=== PATIENT | female | born 1995 | race American Indian/Alaskan Native ===

== ENCOUNTER 2019-02-18 02:01 | Emergency (ER) | payer MEDICAID, OTHER ==
[2019-02-18 02:28] LABS: Basophils % (Auto) 0.2 % (0.0-1.8); Eosinophils # (Auto) 0.1 K/mm3 (0.0-0.4); Eosinophils % (Auto) 0.8 % (0.0-4.3); Hematocrit 29.9 % (30.3-42.9); Hemoglobin 9.9 gm/dl (10.1-14.3); Lymphocytes # (Auto) 2.8 K/mm3 (1.2-5.4); Lymphocytes % (Auto) 27.8 % (13.4-35.0); Mean Corpuscular HGB Conc 33 % (30-34); Mean Corpuscular Volume 85 fl (79-97); Monocytes # (Auto) 0.6 K/mm3 (0.0-0.8); Monocytes % (Auto) 5.9 % (0.0-7.3); Platelet Count 437 K/mm3 (140-440); Red Blood Count 3.51 M/mm3 (3.65-5.03); Red Cell Distribution Width 12.8 % (13.2-15.2)
[2019-02-18 03:02] LABS: Alanine Aminotransferase 26 units/L (7-56); Albumin 4.1 g/dL (3.9-5); BUN/Creatinine Ratio 10; Blood Urea Nitrogen 10 mg/dL (7-17); Calcium 9.3 mg/dL (8.4-10.2); Hemolysis Index 8
[2019-02-18] MEDS ORDERED: PERCOCET 5/325 PO ONE (03:43)
[2019-02-18] MEDS ORDERED: ZOFRAN ODT PO ONE (03:44)
[2019-02-18 03:46] LABS: Bilirubin,Urine NEG (Negative); Blood,Urine LG (Negative); Color,Urine Yellow (Yellow); Mucus,Urine 3+ /HPF; Protein,Urine <15 mg/dL mg/dL (Negative); RBC,Urine > 182.0 /HPF (0.0-6.0)
[2019-02-18] MEDS ORDERED: ZITHROMAX PO ONE (04:14)
[2019-02-18] MEDS ORDERED: XYLOCAINE 1% MPF 5 mL INFILTRATI ONE (04:14)
[2019-02-18] MEDS ORDERED: ROCEPHIN IM ONE (04:14)
--- NOTE | 2019-02-18 05:30 | Emergency Department Report ---
ED Female HPI - General Chief complaint: Abdominal Pain Stated complaint: PELVIC PAIN Time Seen by Provider: 02/18/19 04:20 Source: patient Mode of arrival: Ambulatory Limitations: No Limitations - History of Present Illness Initial comments: Patient is a nulliparous 23-year-old female with no past medical history who presents to the ED with acute onset of persistent severe dysmenorrhea for the last 6 hours. Patient states that she recently received a Depo Provera injection. Patient states that soon after she received the Depo-Provera she started bleeding but only a few days. Patient stated that the last 2 days she started having her menstrual cycle and the pain was mild but in the last 6 hours the pain got worse. Patient stated that she's been unable to sleep. Patient also complains of vaginal discharge with malodorous smell. Patient denies being sexually active. 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 Patient denies dizziness, fever, chills, diarrhea, low back pain, nausea and vomiting or chest pain or shortness of breath. MD Complaint: vaginal bleeding, vaginal discharge, pelvic pain -: Sudden, days(s) (2) Location: suprapubic Radiation: non-radiating, suprapubic Severity: severe Severity scale (0 -10): 9 Quality: cramping, sharp Consistency: constant Improves with: none Worsens with: none Are you Now?: No Last Menstrual Period: 02/15/19 EDC: 11/22/19 Associated Symptoms: vaginal discharge, vaginal bleeding, abdominal pain. denies: nausea/vomiting, fever/chills, headaches, loss of appetite, dysuria, hematuria, shortness of breath, syncope, weakness - Related Data Sexually active: No : 0 Para: 0 A: 0 Previous Rx's Medication Instructions Recorded Last Taken Type Acetaminophen/Codeine [Tylenol 1 tab PO Q6H PRN #15 tab 02/18/19 Unknown Rx /Codeine # 3 tab] Doxycycline Hyclate [Doxycycline 100 mg PO Q12HR #20 tab 02/18/19 Unknown Rx Hyclate TAB] Ibuprofen [Motrin] 800 mg PO Q8HR PRN #20 tablet 02/18/19 Unknown Rx Ondansetron [Zofran Odt] 4 mg PO Q8HR #15 tab.rapdis 02/18/19 Unknown Rx metroNIDAZOLE [Flagyl] 500 mg PO Q12HR #20 tab 02/18/19 Unknown Rx Allergies Allergy/AdvReac Type Severity Reaction Status Date / Time No Known Allergies Allergy Unverified 02/18/19 02:13 ED Review of Systems ROS: Stated complaint: PELVIC PAIN Other details as noted in HPI Comment: All other systems reviewed and negative Constitutional: no symptoms reported, see HPI. denies: chills, diaphoresis, fever Eyes: as per HPI. denies: eye pain, vision change ENT: as per HPI. denies: ear pain, throat pain, dental pain, hearing loss, epistaxis Respiratory: no symptoms reported, see HPI. denies: cough, orthopnea, shortness of breath, SOB with exertion Cardiovascular: as per HPI. denies: chest pain, palpitations, syncope Endocrine: no symptoms reported, see HPI. denies: excessive sweating, flushing Gastrointestinal: as per HPI, abdominal pain. denies: nausea, vomiting, constipation, hematochezia Genitourinary: as per HPI, hematuria, discharge, abnormal menses. denies: urg ency, dysuria Musculoskeletal: as per HPI. denies: back pain, joint swelling, arthralgia Skin: as per HPI. denies: rash, lesions, change in hair/nails Neurological: as per HPI. denies: headache, numbness, paresthesias Psychiatric: as per HPI Hematological/Lymphatic: as per HPI ED Past Medical Hx - Past Medical History Previous Medical History?: Yes Additional medical history: HPV - Surgical History Past Surgical History?: No - Social History Smoking Status: Never Smoker Substance Use Type: None - Medications Home Medications: Home Medications Medication Instructions Recorded Confirmed Last Taken Type Acetaminophen/Codeine [Tylenol 1 tab PO Q6H PRN #15 tab 02/18/19 Unknown Rx /Codeine # 3 tab] Doxycycline Hyclate [Doxycycline 100 mg PO Q12HR #20 tab 02/18/19 Unknown Rx Hyclate TAB] Ibuprofen [Motrin] 800 mg PO Q8HR PRN #20 tablet 02/18/19 Unknown Rx Ondansetron [Zofran Odt] 4 mg PO Q8HR #15 tab.rapdis 02/18/19 Unknown Rx metroNIDAZOLE [Flagyl] 500 mg PO Q12HR #20 tab 02/18/19 Unknown Rx ED Physical Exam - General Limitations: No Limitations General appearance: alert, in no apparent distress - Head Head exam: Present: normocephalic, normal inspection - Eye Eye exam: Present: normal appearance. Absent: PERRL, EOMI, scleral icterus, conjunctival injection - ENT ENT exam: Present: normal exam, normal orophraynx, mucous membranes moist, TM's normal bilaterally, normal external ear exam - Neck Neck exam: Present: normal inspection. Absent: tenderness, lymphadenopathy - Respiratory Respiratory exam: Present: normal lung sounds bilaterally. Absent: respiratory distress, wheezes, chest wall tenderness - Cardiovascular Cardiovascular Exam: Present: normal rhythm, tachycardia, normal heart sounds. Absent: irregular rhythm, diastolic murmur - GI/Abdominal GI/Abdominal exam: Present: soft, tenderness (Suprapubic), normal bowel sounds, hyperactive bowel sounds - Rectal Rectal exam: Present: deferred - External exam: Present: normal external exam Speculum exam: Present: vaginal bleeding Bi-manual exam: Present: cervical motion tendernes, adnexal tenderness, uterine tenderness. Absent: adnexal mass - Extremities Exam Extremities exam: Present: normal inspection, full ROM, normal capillary refill - Back Exam Back exam: Present: normal inspection, full ROM. Absent: tenderness, CVA tenderness (R), CVA tenderness (L), muscle spasm - Neurological Exam Neurological exam: Present: alert, oriented X3, CN II-XII intact, normal gait, reflexes normal - Psychiatric Psychiatric exam: Present: normal affect - Skin Skin exam: Present: warm, dry, intact ED Course Vital Signs 02/18/19 02:20 Temperature 98.1 F Pulse Rate 111 H Respiratory 18 Rate Blood Pressure 107/74 O2 Sat by Pulse 100 Oximetry - Reevaluation(s) Reevaluation #1: 02/18/19 05:00 Patient is alert and oriented 3 and is not in distress. Patient was treated for pain and on reevaluation, patient has resolved on pending medication, patient resting comfortably on the bed. ED Medical Decision Making - Lab Data Result diagrams: 02/18/19 02:18 02/18/19 02:18 - Medical Decision Making Patient is alert and oriented 3 and is not in any distress but tachycardic and anxious about her pain. Patient was treated for pain in the ED and on reevaluation, patient and is well controlled with medications. Lab tests results were reviewed and are unremarkable except for blood in urine. Other lab tests results are unremarkable. Patient treated in the ED with antibiotic for an empiric PID superimposed on dysmenorrhea based on the physical exam findings. On reevaluation, patient's pain is resolved and patient discharged home on medications and advised follow-up with [facility] physician for further evaluation. - Differential Diagnosis Dsymenorrhea, PID, UTI, Bacterial Vaginosis, Trichomonas infection Critical care attestation.: If time is entered above; I have spent that time in minutes in the direct care of this critically ill patient, excluding procedure time. ED Disposition Clinical Impression: Severe dysmenorrhea, Acute pelvic inflammatory disease (PID) Disposition: TO HOME OR SELFCARE Is pt being admited?: No Does the pt Need Aspirin: No Condition: Stable Instructions: Abdominal Pain (ED), Pelvic Inflammatory Disease (ED), Dysmenorrhea (ED) Additional Instructions: TAKE MEDICATION WITH FOOD, DRINK PLENTY OF FLUIDS AND FOLLOW UP WITH YOUR PRIMARY CARE PHYSICIAN OR [facility] PHYSICIAN IN 7-10 DAYS FOR REEVALUATION Prescriptions: Doxycycline Hyclate [Doxycycline Hyclate TAB] 100 mg PO Q12HR #20 tab metroNIDAZOLE [Flagyl] 500 mg PO Q12HR #20 tab Ibuprofen [Motrin] 800 mg PO Q8HR PRN #20 tablet PRN Reason: Pain , Severe (7-10) Acetaminophen/Codeine [Tylenol /Codeine # 3 tab] 1 tab PO Q6H PRN #15 tab PRN Reason: Pain , Severe (7-10) Ondansetron [Zofran Odt] 4 mg PO Q8HR #15 tab.garodis Referrals: PERNELL HOBBS MD [Primary Care Provider] - 3-5 Days Time of Disposition: 05:41 Print Language: INDIAN
[2019-02-18 06:08] VITALS: BP 107/73
== END 2019-02-18 05:55 | disposition home or self-care (01) ==
LOC: ED 02:01
DX: N94.6 Dysmenorrhea, unspecified (principal); N73.9 Female pelvic inflammatory disease, unspecified
CPT/HCPCS: 36415; 80053; 81001; 85025; 96372; 99284; J0696; Q0162

== ENCOUNTER 2021-05-24 12:26 | Emergency (ER) | payer OTHER ==
[2021-05-24 14:18] LABS: Color,Urine Yellow (Yellow)
[2021-05-24 14:19] LABS: Bilirubin,Urine NEG (Negative); Blood,Urine LG (Negative); Mucus,Urine FEW /HPF; Urobilinogen,Urine < 2.0 mg/dL (<2.0)
[2021-05-24 14:23] LABS: RBC,Urine > 182.0 /HPF (0.0-6.0)
[2021-05-24 14:24] LABS: HCG Qualitative,Urine Negative (Negative)
[2021-05-24] MEDS ORDERED: HYDROcodone/ACETAMINOPHEN 5-325 MG TAB PO ONE (14:48)
[2021-05-24] MEDS ORDERED: IBUPROFEN 600 MG TAB PO ONE (14:48)
--- NOTE | 2021-05-24 15:10 | Emergency Department Report ---
ED Female HPI - General Chief complaint: Urogenital-Female Stated complaint: STOMACH PAIN UTI Time Seen by Provider: 05/24/21 14:01 Source: patient Mode of arrival: Ambulatory Limitations: No Limitations - History of Present Illness Initial comments: 25 year old female presents to ED with complaints of pelvic/lower abd pain and abnormal vaginal bleeding. Patient states that she started with lower abdominal/pelvic pain 4 weeks ago. She states that the pain was bearable as long she took ibuprofen but last night became significantly worse. She states that she also started with vaginal bleeding about 5 days ago. She states that the bleeding has been heavy and she has been using about 10 pads per day and today she started passing large clots. She states that her last normal menstrual cycle was April 23, 2021. She states that she did get a Depo shot earlier this month. But prior to that her last shot was 6 months ago. She admitted that she did miss a shot in between. She states that she did vomit once today and and she started having diarrhea (about 9 episodes per today) but denies any hematemesis, hematochezia or melena. She denies any fever or chills. She states that she has not been on any antibiotics in the past 4 weeks. She denies any known ill contacts or bad food intake or recent travel. She denies any abnormal vaginal discharge. She is sexually active with unprotected sexual intercourse with the same partner. MD Complaint: vaginal bleeding, pelvic pain - Related Data Previous Rx's Medication Instructions Recorded Last Taken Type metroNIDAZOLE [Flagyl] 500 mg PO Q12HR #20 tab 02/18/19 Unknown Rx Acetaminophen/Codeine [Tylenol 1 tab PO Q6H PRN #15 tab 05/24/21 Unknown Rx /Codeine # 3 tab] Doxycycline Hyclate [Doxycycline 100 mg PO Q12HR #20 tab 05/24/21 Unknown Rx Hyclate TAB] Ibuprofen [Motrin 800 MG tab] 800 mg PO Q8HR PRN #20 tablet 05/24/21 Unknown Rx Ondansetron [Zofran ODT TAB] 4 mg PO Q8HR #15 tab.rapdis 05/24/21 Unknown Rx Allergies Allergy/AdvReac Type Severity Reaction Status Date / Time No Known Allergies Allergy Verified 05/24/21 13:04 ED Review of Systems ROS: Stated complaint: STOMACH PAIN UTI Other details as noted in HPI Comment: All other systems reviewed and negative Constitutional: denies: chills, fever Eyes: denies: eye pain, eye discharge, vision change ENT: denies: ear pain, throat pain Respiratory: denies: cough, shortness of breath, SOB with exertion, SOB at rest, wheezing Cardiovascular: denies: chest pain, palpitations, dyspnea on exertion, edema, syncope, paroxysmal nocturnal dyspnea Gastrointestinal: abdominal pain, nausea, vomiting, diarrhea. denies: constipation, hematemesis, hematochezia Genitourinary: denies: urgency, dysuria, frequency, hematuria, discharge, abnormal menses, dyspareunia Musculoskeletal: denies: back pain, joint swelling, arthralgia Skin: denies: rash, lesions Neurological: denies: headache, weakness, numbness, paresthesias, confusion, abnormal gait, vertigo Psychiatric: denies: anxiety, depression, auditory hallucinations, visual hallucinations, homicidal thoughts, suicidal thoughts Hematological/Lymphatic: denies: easy bleeding, easy bruising, swollen glands ED Past Medical Hx - Past Medical History Additional medical history: HPV - Social History Smoking Status: Never Smoker Substance Use Type: None - Medications Home Medications: Home Medications Medication Instructions Recorded Confirmed Last Taken Type metroNIDAZOLE [Flagyl] 500 mg PO Q12HR #20 tab 02/18/19 Unknown Rx Acetaminophen/Codeine [Tylenol 1 tab PO Q6H PRN #15 tab 05/24/21 Unknown Rx /Codeine # 3 tab] Doxycycline Hyclate [Doxycycline 100 mg PO Q12HR #20 tab 05/24/21 Unknown Rx Hyclate TAB] Ibuprofen [Motrin 800 MG tab] 800 mg PO Q8HR PRN #20 tablet 05/24/21 Unknown Rx Ondansetron [Zofran ODT TAB] 4 mg PO Q8HR #15 tab.rapdis 05/24/21 Unknown Rx ED Physical Exam - General Limitations: No Limitations General appearance: alert, in distress (Patient appears uncomfortable and to be in pain) - Head Head exam: Present: atraumatic, normocephalic - Eye Eye exam: Present: normal appearance, PERRL, EOMI Pupils: Present: normal accommodation - ENT ENT exam: Present: normal exam, mucous membranes moist, TM's normal bilaterally - Neck Neck exam: Present: normal inspection, full ROM - Respiratory Respiratory exam: Present: normal lung sounds bilaterally. Absent: respiratory distress, wheezes, rales, rhonchi - Cardiovascular Cardiovascular Exam: Present: regular rate, normal rhythm, normal heart sounds - GI/Abdominal GI/Abdominal exam: Present: soft, tenderness (Diffuse tenderness to palpation to the lower abdominal area with mild guarding but no rebound or rigidity or distention). 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 Absent: erythema, swelling, lesions, lacerations, ecchymosis, bleeding Speculum exam: Present: normal speculum exam, vaginal bleeding (Small amount of blood noted in the vaginal vault, but there is a large clot noted in the cervical os). Absent: vaginal discharge, cervical discharge, foreign body, tiss ue, laceration Bi-manual exam: Present: normal bi-manual exam, cervical motion tendernes (mild ), adnexal tenderness (Right and left adnexal tenderness), uterine enlargement, uterine tenderness. Absent: adnexal mass - Extremities Exam Extremities exam: Present: normal inspection - Back Exam Back exam: Present: normal inspection - Neurological Exam Neurological exam: Present: alert, oriented X3, CN II-XII intact, normal gait - Psychiatric Psychiatric exam: Present: normal affect, normal mood - Skin Skin exam: Present: intact ED Course Vital Signs 05/24/21 05/24/21 17:41 18:09 Temperature 99.0 F Pulse Rate 84 Respiratory 16 Rate Blood Pressure 119/66 [Left] O2 Sat by Pulse 96 Oximetry ED Medical Decision Making - Lab Data Result diagrams: 05/24/21 15:27 05/24/21 15:27 - Radiology Data Radiology results: report reviewed Patient: ANGELA SANTOYO MR#: [id number] 3 : 1995 Acct:[id number] Age/Sex: 25 / F ADM Date: 05/24/21 Loc: ED Attending Dr: Ordering Physician: MICHAEL KEENE Date of Service: 05/24/21 Procedure(s): US pelvic complete Accession Number(s): [id number] cc: MICHAEL KEENE ULTRASOUND PELVIS INDICATION: severe pelvic pain. TECHNIQUE: Transabdominal. Duplex Color Doppler used: Yes. COMPARISON: None available FINDINGS: Uterus: Present. Size: 8.1 x 4.4 x 5.6 cm. Endometrial complex: Normal measuring 1.4 cm. Mass lesions: None. Additional findings: None. Right Ovary -- Normal. Blood flow: Normal. Cyst or mass: None. Left Ovary-- Normal. Blood flow: Normal. Cyst or mass: None. Urinary Bladder: Normal. Free Fluid: None. Additional Findings: None. IMPRESSION: 1. Mild thickening of the endometrium may be cycle related. 2. No adnexal abnormality. Signer Name: Hussain Wilson MD Signed: 05/24/2021 4:59 PM Workstation Name: [id number] Transcribed By: ADAL Dictated By: Hussain Wilson MD Electronically Authenticated By: Hussain Wilson MD Signed Date/Time: 05/24/211658 DD/ 56 TD/TT: - Medical Decision Making Patient feeling better after pain meds and resting more comfortably. Labs reviewed -- CBC and CMP unremarkable. lipase normal. HCG negative. UA show no UTI. Pelvic exam showed adnexal tenderness, and mild cmt but no adnexal swelling, and tenderness to the uterus with a large clot in the cervical os but no active hemorrhage and no obvious discharge. US show -- Mild thickening of the endometrium may be cycle related. No adnexal abnormality. Discussed lab and US results with patient. Wet prep shows no trichomonas, yeast or BV. Patient will be treated prophylactically for GC. Her history, PE and current exam does not suggest appendicitis, tubo-ovarian abscess , ovarian torsion, pyelonephritis, diverticulitis, severe PID or any other significant pathology to warrant any further testing, continued ED treatme nt, admission or surgical consult at this point. Suspected dx and tx plan discussed with patient. REcommend close follow up with OBGYN. Patient expresses understanding of instructions and agreed with plan. Patient stable at time of d/c. Critical care attestation.: If time is entered above; I have spent that time in minutes in the direct care of this critically ill patient, excluding procedure time. ED Disposition Clinical Impression: Abnormal uterine bleeding, Pelvic pain Disposition: DC-01 TO HOME OR SELFCARE Is pt being admited?: No Does the pt Need Aspirin: No Condition: Stable Instructions: Abnormal Uterine Bleeding Additional Instructions: Take the tylenol 3 and the toradol as precribed for pain. Take the zofran as needed for nausea. Take the doxycycline as prescribed to cover for possible chlamydia. Take Imodium [id number] as needed for diarrhea. Your sexual partner may need to get tested and treated as well for STDs including gonorrhea and chlamydia. Follow-up closely with your [facility]. Return to the ER if your symptoms changes or worsens in any way. Prescriptions: Doxycycline Hyclate [Doxycycline Hyclate TAB] 100 mg PO Q12HR #20 tab Ibuprofen [Motrin 800 MG tab] 800 mg PO Q8HR PRN #20 tablet PRN Reason: Pain , Severe (7-10) Acetaminophen/Codeine [Tylenol /Codeine # 3 tab] 1 tab PO Q6H PRN #15 tab PRN Reason: Pain , Severe (7-10) Ondansetron [Zofran ODT TAB] 4 mg PO Q8HR #15 tab.christine Referrals: [facility] [Provider Group] - 3-5 Days Time of Disposition: 18:00
[2021-05-24 15:47] LABS: Basophils % (Auto) 0.1 % (0.0-1.8); Eosinophils % (Auto) 0.1 % (0.0-4.3); Hematocrit 43.7 % (30.3-42.9); Hemoglobin 14.6 gm/dl (10.1-14.3); Lymphocytes # (Auto) 0.9 K/mm3 (1.2-5.4); Lymphocytes % (Auto) 8.3 % (13.4-35.0); Mean Corpuscular HGB Conc 33 % (30-34); Mean Corpuscular Volume 93 fl (79-97); Monocytes # (Auto) 0.4 K/mm3 (0.0-0.8); Monocytes % (Auto) 3.9 % (0.0-7.3); Platelet Count 344 K/mm3 (140-440); Red Blood Count 4.71 M/mm3 (3.65-5.03); Red Cell Distribution Width 12.6 % (13.2-15.2)
[2021-05-24 15:59] LABS: Alanine Aminotransferase 28 units/L (7-56); Albumin 4.6 g/dL (3.9-5); Blood Urea Nitrogen 5 mg/dL (7-17); Calcium 9.5 mg/dL (8.4-10.2); Hemolysis Index 24
[2021-05-24 16:13] LABS: BUN/Creatinine Ratio 8
--- NOTE | 2021-05-24 17:03 | Ultrasound Report ---
ULTRASOUND PELVIS INDICATION: severe pelvic pain. TECHNIQUE: Transabdominal. Duplex Color Doppler used: Yes. COMPARISON: None available FINDINGS: Uterus: Present. Size: 8.1 x 4.4 x 5.6 cm. Endometrial complex: Normal measuring 1.4 cm. Mass lesions: None. Additional findings: None. Right Ovary -- Normal. Blood flow: Normal. Cyst or mass: None. Left Ovary-- Normal. Blood flow: Normal. Cyst or mass: None. Urinary Bladder: Normal. Free Fluid: None. Additional Findings: None. IMPRESSION: 1. Mild thickening of the endometrium may be cycle related. 2. No adnexal abnormality. Signer Name: Hussain Wilson MD Signed: 05/24/2021 4:59 PM Workstation Name: [id number]
[2021-05-24] MEDS ORDERED: LIDOCAINE-MPF (1%) 10 MG/1 ML VIAL 5 ML INFILTRATI ONE (17:27)
[2021-05-24 17:41] VITALS: BP 119/66
== END 2021-05-24 18:10 | disposition home or self-care (01) ==
LOC: ED 12:26
DX: N93.9 Abnormal uterine and vaginal bleeding, unspecified (principal); R10.2 Pelvic and perineal pain; Z79.899 Other long term (current) drug therapy
CPT/HCPCS: 36415; 76856; 80053; 81001; 81025; 83690; 85025; 87210; 87591; 96372; 99284; J0696